=== PATIENT | female | born 2000 | race Two or more races ===

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

== ENCOUNTER 2022-03-23 08:35 | Emergency (ER) | payer OTHER ==
[~2022-03-23] VITALS: Ht 152.4 cm; Wt 86.2 kg
== END 2022-03-23 10:17 | disposition home or self-care (01) ==
LOC: ER 08:35
DX: J06.9 Acute upper respiratory infection, unspecified (principal); R53.81 Other malaise